=== PATIENT | male | born 1980 | race Caucasian/White ===

== ENCOUNTER 2023-09-13 08:00 | Outpatient (CLI) | payer OTHER, SELFPAY | END 2023-09-13 08:01 | disposition home or self-care (01) | PROVIDERS: PCP Internal Medicine; Referring Provider Internal Medicine; Visit Provider Internal Medicine | DX: Z13.220 Encounter for screening for lipoid disorders (principal); Z12.5 Encounter for screening for malignant neoplasm of prostate; Z13.228 Encounter for screening for other metabolic disorders | CPT/HCPCS: 80053; 80061; 84153 ==

== ENCOUNTER 2023-10-25 07:08 | Outpatient (CLI) | payer OTHER, SELFPAY ==
--- NOTE | 2023-10-25 08:16 | W.ANESCHARGE ---
Anesthesia Charges Start Date/Time Anesthesia Start Date: 10/25/23 Anesthesia Start Time: 07:51 Stop Date/Time Anesthesia Stop Date: 10/25/23 Anesthesia Stop Time: 08:11
--- NOTE | 2023-10-25 09:05 | W.ANESCHARGE ---
Anesthesia Charges Start Date/Time Anesthesia Start Date: 10/25/23 Anesthesia Start Time: 07:51 Stop Date/Time Anesthesia Stop Date: 10/25/23 Anesthesia Stop Time: 08:11
== END 2023-10-25 07:09 | disposition home or self-care (01) ==
LOC: OP CLINIC 07:09
PROVIDERS: PCP Internal Medicine; Visit Provider Internal Medicine
DX: Z12.11 Encounter for screening for malignant neoplasm of colon (principal)
CPT/HCPCS: 00812; 45378; J2704